=== PATIENT | male | born 1950 | race Caucasian/White ===

== ENCOUNTER 2016-08-22 08:19 | Outpatient (CLI) | payer OTHER ==
[2016-08-22 09:07] LABS: eGFR (African) > 60; eGFR (Non-African) > 60
== END 2016-08-22 08:20 ==
LOC: LAB 08:19
PROVIDERS: ATTEND Family Medicine
DX: I25.10 Atherosclerotic heart disease of native coronary artery without angina pectoris (principal)
CPT/HCPCS: 36415; 80053; 80061

== ENCOUNTER 2017-06-01 15:13 | Outpatient (CLI) | payer MEDICARE, OTHER ==
--- NOTE | 2017-06-01 18:24 | Diagnostic Imaging Report ---
RONNIE KOVACS [facility] [id number] [facility] [address] [id number] Report Submission Date: Jun 01, 2017 3:51:24 PM [employer]ASTE [employer]USTER Patient Study Name: BIBIANA AUSTIN Date: Jun 01, 2017 3:26:23 PM [employer]ASTE [employer]ER Modality Type: CR Gender: M Description: UPPER EXTREMITY : 54 Institution: [facility] Physician: RONNIE KOVACS Examination: Plain film hand History: Hand discomfort the specifically the 1st digit. Comparison exams: None available Findings: 3 views the hand demonstrates articular degenerative changes - most pronounced at the 1st carpal metacarpal articulation. No fracture. No dislocation. No soft tissue abnormality. 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 No fracture. Electronically signed on Jun 01, 2017 3:51:24 PM WASTE DUSTER by: Bryson NEGRO
== END 2017-06-01 15:14 ==
LOC: RAD 15:13
PROVIDERS: ATTEND Family Medicine
DX: M79.642 Pain in left hand (principal)
CPT/HCPCS: 73130

== ENCOUNTER 2018-10-09 09:29 | Outpatient (CLI) | payer MEDICARE, OTHER ==
[2018-10-09 10:01] LABS: eGFR (Non-African) > 60
== END 2018-10-09 09:35 ==
LOC: LAB 09:29
PROVIDERS: ATTEND Nurse Practitioner Family
DX: I25.10 Atherosclerotic heart disease of native coronary artery without angina pectoris (principal)
CPT/HCPCS: 36415; 80053; 80061